=== PATIENT | female | born 1945 | race Caucasian/White ===

== ENCOUNTER 2016-07-15 11:07 | Day surgery (SDC) | payer MEDICARE ==
--- NOTE | ~2016-07-15 | EGD ---
EGD REPORT [facility] [address] 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 Estimated blood loss: None. Procedure: Pre-Anesthesia Assessment: - ASA Grade Assessment: - ASA Grade Assessment: III - A patient with severe systemic disease. After obtaining informed consent, the endoscope was passed under direct vision. Throughout the procedure, the patient's blood pressure, pulse, and oxygen saturations were monitored continuously. The GIF [id number] was introduced through the mouth, and advanced to the second part of duodenum. The Endoscope was introduced through the mouth, and advanced to the second part of duodenum. Findings: Endoscopic Finding : The examined esophagus was endoscopically normal. The entire examined stomach was endoscopically normal. The examined duodenum was endoscopically normal. There was metal stent protruding from the papilla. Endosonographic Finding : One stent was visualized endosonographically in the common bile duct. Extension of the stent was noted in the common bile duct. No lymphadenopathy seen. Pancreatic parenchymal abnormalities were noted in the entire pancreas. These consisted of lobularity and shadowing foci. Of note the entire pancreas appeared normal and has the appearance that is often seen in autoimmune pancreatitis although the pancreatic duct is usually not dilated in this condition. The pancreatic duct was not well visualized in the head. Some of this may be due the interference from the metal stent,. The pancreatic duct had a dilated endosonographic appearance in the body of the pancreas. The pancreatic duct measured up to 4 mm in diameter. Pancreatic parenchymal abnormalities were noted in the pancreatic head. These consisted of calcifications, hyperechoic foci and lobularity. Fine EGD REPORT [place] [id number] [facility] [place]. [address] NAME: JOHNNA RICHMOND : [birth year] STATUS : REG [facility] PAT#: [id number] AGE: 71 ADM/REG DATE : 07/15/16 MR#: [id number] REPORT SERV DATE: 07/15/16 DICTATED BY: LEIGHANN BRYAN DATE: 07/15/16 REPORT STATUS : Draft TRANSCRIBED BY: [facility] DATE: 07/15/16 needle aspiration was performed. Color Doppler imaging was utilized prior to needle puncture to confirm a lack of significant vascular structures within the needle path. Ten passes were made with the 22 gauge needle using a transgastric approach and using a transduodenal approach. No stylet was used. A preliminary cytologic examination was not performed. Final cytology results are pendimg. There was no evidence of involvement of the portal vein, SMV, splenic vein, celiac artery or SMA. Impression: - Normal esophagus. - Normal stomach. - Normal examined duodenum. - One stent was visualized endosonographically in the common bile duct. - Pancreatic parenchymal abnormalities consisting of lobularity and shadowing foci were noted in the entire pancreas. - The pancreatic duct had a dilated endosonographic appearance in the body of the pancreas. The pancreatic duct measured up to 4 mm in diameter. - Pancreatic parenchymal abnormalities consisting of calcifications, hyperechoic foci and lobularity were noted in the pancreatic head. Recommendation: - Return to previous diet. - Await path results. - Continue present medications. - Check IgG4 levels. Procedure Code(s): --- Professional --- 91172, Esophagogastroduodenoscopy, flexible, transoral; with transendoscopic ultrasound-guided intramural or transmural fine needle aspiration/biopsy(s) (includes endoscopic ultrasound examination of the esophagus, stomach, and either the duodenum or a surgically altered stomach where the jejunum is examined distal to the anastomosis) Diagnosis Code(s): --- Professional --- K86.9, Disease of pancreas, unspecified R93.3, Abnormal findings on diagnostic imaging of other parts of digestive tract CPT copyright 2013 [employer]. All rights reserved. The codes documented in this report are preliminary and upon certified procedural coder review may EGD REPORT [facility] [address] [address] NAME: JOHNNA RICHMOND : [birth year] STATUS : REG [facility] PAT#: [id number] AGE: 71 ADM/REG DATE : 07/15/16 MR#: [id number] REPORT SERV DATE: 07/15/16 DICTATED BY: LEIGHANN BRYAN DATE: 07/15/16 REPORT STATUS : Draft TRANSCRIBED BY: [employer] DATE: 07/15/16 be revised to meet current compliance requirements. LEIGHANN BRYAN, 07/15/2016 1:21 PM Number of Addenda: 0 Note Initiated On: 07/15/2016 12:38 PM Scope Withdrawal Time 0 hours 0 minutes 0 seconds [address] [id number]
[~2016-07-15 11:07] MED LIST: ADVAIR250 INH; CALTRA600D PO; MULTIPLE VIT PO; P20 PO; PLAQ200B PO; PREM625 PO; PRILO PO; VENTOLIN HFA INH
[2016-07-18 06:24] LABS: IMMUNOGLOBULIN G SUBCLASS 1 777 mg/dL (405-1011); IMMUNOGLOBULIN G SUBCLASS 2 747 mg/dL (169-786); IMMUNOGLOBULIN G SUBCLASS 3 28 mg/dL (11-85); IMMUNOGLOBULIN G SUBCLASS 4 1170 mg/dL (3-201)
== END 2016-07-15 23:59 | disposition home or self-care (01) ==
LOC: DMU 11:07
PROVIDERS: Internal Medicine Gastroenterology
PROC: 0D798ZZ Dilation of Duodenum, Via Natural or Artificial Opening Endoscopic (ICD-10-PCS; 2016-07-15)
PROC: 0D768ZZ Dilation of Stomach, Via Natural or Artificial Opening Endoscopic (ICD-10-PCS; principal; 2016-07-15 13:00)
DX: K86.9 Disease of pancreas, unspecified (principal); R93.3 Abnormal findings on diagnostic imaging of other parts of digestive tract; J45.909 Unspecified asthma, uncomplicated; M06.9 Rheumatoid arthritis, unspecified; Z85.038 Personal history of other malignant neoplasm of large intestine; Z98.890 Other specified postprocedural states; Z88.2 Allergy status to sulfonamides; Z88.1 Allergy status to other antibiotic agents
CPT/HCPCS: 82787; 82787-59; 88173; 88305; C1725; J2405

== ENCOUNTER 2016-08-23 06:34 | Day surgery (SDC) | payer MEDICARE ==
--- NOTE | ~2016-08-23 | EGD ---
EGD REPORT [facility] [address] [address] NAME: JOHNNA RICHMOND : [birth year] STATUS : REG [facility]#: [id number] AGE: 71 ADM/REG DATE : 08/23/16 MR#: [id number] REPORT SERV DATE: 08/23/16 DICTATED BY: LEIGHANN BRYAN DATE: 08/23/16 REPORT STATUS : Draft [facility]: [facility] DATE: 08/23/16 Endoscopy Center Patient Name: Johnna Richmond Date of : 1945 Attending MD: LEIGHANN BRYAN, Procedure Date No Time: 08/23/2016 Procedure: ERCP Indications: Stent removal. 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 Estimated blood loss: None Procedure: Pre-Anesthesia Assessment: - ASA Grade Assessment: III - A patient with severe systemic disease. After obtaining informed consent, the scope was passed under direct vision. Throughout the procedure, the patient's blood pressure, pulse, and oxygen saturations were monitored continuously. The TJF [id number] was introduced through the mouth, and advanced to the duodenum and used to inject contrast into the bile duct. The ERCP was accomplished without difficulty. The patient tolerated the procedure well. Findings: One stent originating in the biliary tree was emerging from the major papilla. One stent was removed from the biliary tree using a rat-toothed forceps. The bile duct was deeply cannulated with the short-nosed traction sphincterotome. Contrast was injected. I personally interpreted the bile duct images. Ductal flow of contrast was adequate. The main bile duct was diffusely dilated. The largest diameter was 10 mm. The biliary tree was swept with a 12 mm balloon starting at the upper third of the main bile duct. Sludge was swept from the duct. Impression: - One stent from the biliary tree was seen in the major papilla. - One stent was removed from the biliary tree. - The entire main bile duct was dilated. Recommendation: - Return to previous diet. - Continue present medications. - Taper prednisone by 5 mg weekly. Repeat LFT's in 2 weeks. Procedure Code(s): --- Professional --- EGD REPORT [address] [address] NAME: JOHNNA RICHMOND : [birth year] STATUS : REG [facility]#: [id number] AGE: 71 ADM/REG DATE : 08/23/16 MR#: [id number] REPORT SERV DATE: 08/23/16 DICTATED BY: LEIGHANN BRYAN DATE: 08/23/16 REPORT STATUS : Draft [facility] DATE: 08/23/16 [id number], Endoscopic retrograde cholangiopancreatography (ERCP); with removal of foreign body(s) or stent(s) from biliary/pancreatic duct(s) [address], Endoscopic retrograde cholangiopancreatography (ERCP); with removal of calculi/debris from biliary/pancreatic duct(s) Diagnosis Code(s): --- Professional --- Z96.89, Presence of other specified functional implants Z46.59, Encounter for fitting and adjustment of other gastrointestinal appliance and device 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 All rights reserved. The codes documented in this report are preliminary and upon supervisor buffing and pasting review may be revised to meet current compliance requirements. LEIGHANN IRVIN, 08/23/2016 9:54 AM Number of Addenda: 0 Note Initiated On: 08/23/2016 9:07 AM Scope Withdrawal Time 0 hours 0 minutes 0 seconds [address] [place] [id number]
[2016-08-23 07:09] LABS: BUN (BLOOD UREA NITROGEN) 15 MG/DL (6-23); CALCIUM, SERUM 8.9 MG/DL (8.5-10.4); CHLORIDE, SERUM 109 MMOL/L (96-112); CO2 (CARBON DIOXIDE) 34 MMOL/L (24-34); CREATININE 0.91 MG/DL (0.55-1.02); GFR AFRICAN AMERICAN 74 ML/MIN (>=60); GFR NON AFRICAN AMERICAN 63 ML/MIN (>=60); GLUCOSE, SERUM 89 MG/DL (60-99); POTASSIUM, SERUM 3.6 MMOL/L (3.5-5.3); SODIUM, SERUM 148 MMOL/L (135-148)
== END 2016-08-23 23:59 | disposition home or self-care (01) ==
LOC: DMU 06:34
PROVIDERS: Anesthesiology; Internal Medicine Gastroenterology
PROC: 0FPB8DZ Removal of Intraluminal Device from Hepatobiliary Duct, Via Natural or Artificial Opening Endoscopic (ICD-10-PCS; principal; 2016-08-23 09:30)
DX: Z46.59 Encounter for fitting and adjustment of other gastrointestinal appliance and device (principal); Q44.0 Agenesis, aplasia and hypoplasia of gallbladder; Q44.1 Other congenital malformations of gallbladder; Q44.4 Choledochal cyst; Q44.5 Other congenital malformations of bile ducts; Q44.7 Other congenital malformations of liver; Z96.89 Presence of other specified functional implants; Z88.5 Allergy status to narcotic agent; Z88.8 Allergy status to other drugs, medicaments and biological substances; Z79.52 Long term (current) use of systemic steroids; Z79.899 Other long term (current) drug therapy; Z98.41 Cataract extraction status, right eye; Z98.42 Cataract extraction status, left eye; Z90.711 Acquired absence of uterus with remaining cervical stump; Z98.890 Other specified postprocedural states; Z90.49 Acquired absence of other specified parts of digestive tract
CPT/HCPCS: 74330; 80048; 93005; A9270-GY; C1769; J0330; Q9967